=== PATIENT | male | born 1995 | race Caucasian/White ===

== ENCOUNTER 2024-11-14 09:00 | Emergency (ER) | payer OTHER ==
[~2024-11-14] VITALS: Ht 175.3 cm; Wt 81.0 kg
[2024-11-14 09:04] VITALS: O2SAT 100
[2024-11-14 09:39] LABS: BASOPHILS % 0.4 % (0.0-2.0); EOSINOPHILS % 0.1 % (0.0-5.0); HEMATOCRIT. 40.6 % (42.0-52.0); HEMOGLOBIN. 13.9 g/dL (14.0-18.0); LYMPHOCYTES % 8.5 % (20.0-50.0); MEAN CORPUSCULAR HEMOGLOBIN 29.1 pg (28.0-32.0); MEAN CORPUSCULAR HGB CONC 34.2 g/dL (31.0-37.0); MEAN PLATELET VOLUME 7.1 fl (7.4-10.4); MONOCYTES % 2.9 % (2.0-8.0); NEUTROPHILS % 88.1 % (40.0-76.0); PLATELET 378 x1000/uL (130-400); RED BLOOD CELL COUNT 4.78 mill/uL (4.7-6.1); WHITE BLOOD COUNT 17.3 x1000/uL (4.5-11.0)
[2024-11-14] MEDS: FAMOTIDINE 20MG TABLET PO ONE (09:39)
[2024-11-14] MEDS: ONDANSETRON 4MG ODT PO STA (09:39)
[2024-11-14] MEDS: MAGNESIUM/ALUMINUM HYDROXIDE/SIMETHICONE 30ML UDC PO STA (09:39)
[2024-11-14 09:49] LABS: CHLORIDE 102 mEq/L (98-107); POTASSIUM 4.2 mEq/L (3.5-5.1); SODIUM 138 mEq/L (136-145)
[2024-11-14 09:50] LABS: CARBON DIOXIDE 25 mEq/L (21-32)
[2024-11-14 09:51] LABS: CALCIUM 9.8 mg/dL (8.7-10.4)
[2024-11-14 09:56] LABS: CREATININE 0.9 mg/dL (0.6-1.3); GLUCOSE 121 mg/dL (70-105); UREA NITROGEN BLOOD 10 mg/dL (9-23)
[2024-11-14 09:57] LABS: ALANINE AMINOTRANSFERASE 163 IU/L (10-49)
[2024-11-14] MEDS: DICYCLOMINE 10 MG/5 ML ORAL SYR PO STA (09:57)
[2024-11-14 09:58] LABS: ALBUMIN 4.6 g/dL (3.2-4.8); ASPARTATE AMINOTRANSFERASE 161 IU/L (<34); BILIRUBIN DIRECT 0.2 mg/dL (<=3.0); BILIRUBIN TOTAL 0.6 mg/dL (0.1-1.0); PROTEIN TOTAL 8.1 g/dL (6.0-8.3)
[2024-11-14 10:15] LABS: COLOR URINE YELLOW (YELLOW)
[2024-11-14 10:16] LABS: CLARITY URINE CLEAR (CLEAR); GLUCOSE URINE NEGATIVE (NEGATIVE); PH URINE >=9.0 (4.5-8.0); PROTEIN URINE 1+ (NEGATIVE); SPECIFIC GRAVITY URINE 1.025 (1.005-1.030)
[2024-11-14 10:17] LABS: KETONES URINE 2+ (NEGATIVE); LEUKOCYTE ESTERASE URINE NEGATIVE (NEGATIVE); NITRITE URINE NEGATIVE (NEGATIVE); OCCULT BLOOD URINE NEGATIVE (NEGATIVE)
[2024-11-14 10:34] LABS: SQUAMOUS EPITHELIAL CELL URINE 1+ /lpf (RARE/1+)
[2024-11-14 10:35] LABS: MUCUS URINE 2+ /lpf (NONE/TRACE)
[2024-11-14 10:37] LABS: ETHANOL BLOOD < 10 mg/dL (<10)
[2024-11-14 10:39] LABS: BACTERIA URINE TRACE; RBC URINE NONE SEEN /hpf (0-2); WBC URINE 0-2 /hpf (0-2)
[2024-11-14] MEDS: DICYCLOMINE HCL 10MG CAPSULE PO NR (11:06)
[2024-11-14] MEDS ORDERED: FAMO-135 MT (11:11)
[2024-11-14 11:27] VITALS: BP 130/88; PULSE 76; RESP 18; TEMP 36.7; O2SAT 100
== END 2024-11-14 11:29 | disposition home or self-care (01) ==
LOC: ER 09:00
DX: K29.70 Gastritis, unspecified, without bleeding (principal)
CPT/HCPCS: 80076; 80048; 81003; 80320; 83690; 85025; 36415; 99284; Q0162; G0480